=== PATIENT | male | born 1960 | race Caucasian/White ===

== ENCOUNTER 2018-01-01 01:15 | Emergency (ER) | payer MEDICAID ==
[2018-01-01 01:28] VITALS: BMI 31.5
[2018-01-01 01:32] VITALS: RESP 18
--- NOTE | 2018-01-01 02:03 | ED PDOC ---
Arrival/HPI - General Chief Complaint: Male Genitourinary Time Seen by Provider: 01/01/18 01:24 Historian: Patient - History of Present Illness Narrative History of Present Illness (Text): 01/01/18 01:35 57 year old male, with past medical history of recurrent kidney stones, presents to the Emergency department complaining of non-radiating left sided flank discomfort since couple hours. Patient states progressively worsening symptoms with ambulation prompting him to present to the Emergency department for medical evaluation. Patient denies any fever, chills, nausea, vomiting, diarrhea, dysuria, urinary output changes, hematuria, changes in bowel movement , abdominal pain, chest pain, shortness of breath or any other complaints. Time/Duration: 1-3 hours Symptom Onset: Gradual Symptom Course: Unchanged Quality: Aching Activities at Onset: Light Context: Home Past Medical History - Provider Review Nursing Documentation Reviewed: Yes - Infectious Disease Hx of Infectious Diseases: None - Tetanus Immunization Tetanus Immunization: Unknown - Cardiac Hx Cardiac Disorders: No - Pulmonary Hx Respiratory Disorders: No - Neurological Hx Neurological Disorder: No - HEENT Hx HEENT Disorder: No - Renal Hx Renal Disorder: Yes Hx Kidney Stones: Yes - Endocrine/Metabolic Hx Endocrine Disorders: No - Hematological/Oncological Hx Blood Transfusions: No Hx Blood Transfusion Reaction: No - Integumentary Hx Dermatological Disorder: No - Musculoskeletal/Rheumatological Hx Falls: No - Gastrointestinal Hx 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") - Genitourinary/Gynecological Hx Genitourinary Disorders: No Other/Comment: KIDNEY STONE - Psychiatric Hx Psychophysiologic Disorder: No Hx Substance Use: No - Surgical History Hx Cardiac Catheterization: No Hx Coronary Stent: No - Anesthesia Hx Anesthesia Reactions: No Hx Malignant Hyperthermia: No Family/Social History - Physician Review Nursing Documentation Reviewed: Yes Family/Social History: No Known Family HX Smoking Status: Current Some Days Smoker Hx Alcohol Use: No Hx Substance Use: No Allergies/Home Meds Allergies/Adverse Reactions: Allergies No Known Allergies Allergy (Verified 01/01/18 04:24) Review of Systems - Physician Review All systems were reviewed & negative as marked: Yes - Review of Systems Constitutional: Normal. absent: Fevers Eyes: Normal ENT: Normal Respiratory: Normal. absent: SOB Cardiovascular: Normal. absent: Chest Pain Gastrointestinal: Normal. absent: Abdominal Pain, Stool Changes, Diarrhea, Nausea, Vomiting Genitourinary Male: Normal. absent: Dysuria, Hematuria, Urinary Output Changes Musculoskeletal: Back Pain (left flank discomfort ) Skin: Normal Neurological: Normal Endocrine: Normal Hemo/Lymphatic: Normal Psychiatric: Normal Physical Exam Vital Signs Reviewed: Yes Vital Signs Temp Pulse Resp BP Pulse Ox 01/01/18 06:16 97.5 F L 67 18 151/69 H 98 01/01/18 03:07 71 18 159/72 H 98 01/01/18 01:28 97.7 F 68 18 162/76 H 99 Temperature: Afebrile Blood Pressure: Hypertensive Pulse: Regular Respiratory Rate: Normal Appearance: Positive for: Well-Appearing, Non-Toxic, Comfortable Pain Distress: None Mental Status: Positive for: Alert and Oriented X 3 - Systems Exam Head: Present: Atraumatic, Normocephalic Pupils: Present: PERRL Extroacular Muscles: Present: EOMI Conjunctiva: Present: Normal Mouth: Present: Moist Mucous Membranes Neck: Present: Normal Range of Motion Respiratory/Chest: Present: Clear to Auscultation, Good Air Exchange. No: Respiratory Distress, Accessory Muscle Use Cardiovascular: Present: Regular Rate and Rhythm, Normal S1, S2. No: Murmurs Abdomen: No: Tenderness, Distention, Peritoneal Signs Back: Present: CVA Tenderness (Left sided). No: Midline Tenderness Upper Extremity: Present: Normal Inspection. No: Cyanosis, Edema Lower Extremity: Present: Normal Inspection. No: Edema Neurological: Present: GCS=15, CN II-XII Intact, Speech Normal Skin: Present: Warm, Dry, Normal Color. No: Rashes Psychiatric: Present: Alert, Oriented x 3, Normal Insight, Normal Concentration Medical Decision Making ED Course and Treatment: 01/01/18 01:35 Impression: 57 year old male presents to the Emergency department for left flank pain. Differential Diagnosis included but are not limited to: Nephrolithiasis Plan: -- CT of Abdomen/Pelvis -- Labs -- Toradol -- Urinalysis -- Reassess and disposition Prior Visits: Notes and results from previous visits were reviewed. Progress Notes: - Lab Interpretations Lab Results: 01/01/18 02:15 01/01/18 02:15 Lab Results 01/01/18 04:10: Urine Color Yellow, Urine Appearance Sl cloudy, Urine pH 6.0, Ur Specific [place] >= 1.030, Urine Protein Trace H, Urine Glucose (UA) Negative , Urine Ketones Trace H, Urine Blood Small H, Urine Nitrate Negative, Urine Bilirubin Negative, Urine Urobilinogen 0.2, Ur Leukocyte Esterase Negative, Urine RBC 2 - 5, Urine WBC 0 - 2, Ur Epithelial Cells 1 - 3, Urine Bacteria Rare 01/01/18 02:15: Sodium 140, Potassium 4.1, Chloride 103, Carbon Dioxide 27, Anion Gap 15, BUN 11, Creatinine 0.7 L, Est GFR ( Amer) > 60, Est GFR ( Non-Af Amer) > 60, Random Glucose 240 H, Calcium 9.1, Total Bilirubin 0.5, AST 25, ALT 29, Alkaline Phosphatase 80, Total Protein 7.0, Albumin 3.8, Globulin 3.2, Albumin/Globulin Ratio 1.2 01/01/18 02:15: WBC 8.3 D, RBC 4.89, Hgb 14.0, Hct 41.2 L, MCV 84.3, MCH 28.6, MCHC 34.0, RDW 14.5, Plt Count 259, MPV 10.6, Gran % 53.7, Lymph % (Auto) 32.5, Towns % (Auto) 8.2 H, Eos % (Auto) 5.2 H, Baso % (Auto) 0.4, Gran # 4.45, Lymph # (Auto) 2.7, Towns # (Auto) 0.7 H, Eos # (Auto) 0.4, Baso # (Auto) 0.03 - RAD Interpretation Radiology Orders: 01/01/18 01:35 ABD & PELVIS W/O PO OR IV CONT [CT] Stat - Medication Orders Current Medication Orders: Discontinued Medications Ketorolac Tromethamine (Toradol) 30 mg IVP ONCE ONE Stop: 01/01/18 01:44 Last Admin: 01/01/18 02:06 Dose: 30 mg BANNER Pain Assessment Document 01/01/18 02:06 RADHA (Rec: 01/01/18 02:08 RADHA [email or web address]) Pain Reassessment Is this a pain reassessment? Yes IVP Administration Document 01/01/18 02:06 RADHA (Rec: 01/01/18 02:08 RADHA [email or web address]) Charges for Administration # of IVP Administrations 1 Re-Assess: BANNER Pain Assessment Document 01/01/18 03:06 RADHA (Rec: 01/01/18 04:37 RADHA [id number]) Pain Reassessment Is this a pain reassessment? Yes Sleep Is patient sleeping during reassessment? No Presence of Pain Presence of Pain No - Scribe Statement The provider has reviewed the documentation as recorded by the Scribe Clarice Mnodragon. All medical record entries made by the Scribe were at my direction and personally dictated by me. I have reviewed the chart and agree that the record accurately reflects my personal performance of the history, physical exam, medical decision making, and the department course for this patient. I have also personally directed, reviewed, and agree with the discharge instructions and disposition. Disposition/Present on Arrival - Present on Arrival Any Indicators Present on Arrival: No History of DVT/PE: No History of Uncontrolled Diabetes: No Urinary Catheter: No History of Decub. Ulcer: No History Surgical Site Infection Following: None - Disposition Have Diagnosis and Disposition been Completed?: Yes Diagnosis: Nephrolithiasis Disposition: HOME/ ROUTINE Disposition Time: 06:30 Condition: GOOD Discharge Instructions (ExitCare): Kidney Stones in Adults Prescriptions: Ciprofloxacin HCl [Cipro] 250 mg PO BID #14 tab Tamsulosin [Flomax] 0.4 mg PO DAILY #10 cap oxyCODONE/Acetaminophen [Percocet 5/325 mg Tab] 1 ea PO QID #10 tab Referrals: Jaime Harkins MD [Staff Provider] - Follow up with primary Carlota Neff [Primary Care Provider] - Follow up with primary Forms: [employer] (Libyan)
[2018-01-01 02:30] LABS: BASO # 0.03 K/mm3 (0.0-2.0); BASO % 0.4 % (0.0-3.0); EOS # 0.4 (0.0-0.7); EOS % 5.2 % (1.5-5.0); GRAN # 4.45 (1.4-6.5); GRAN % 53.7 % (50.0-68.0); LYMPH # 2.7 (1.2-3.4); LYMPH % 32.5 % (22.0-35.0); MEAN CELL VOLUME 84.3 fl (80.0-105.0); MEAN CORPUSCULAR HEMOGLOBIN 28.6 pg (25.0-35.0); MEAN PLATELET VOLUME 10.6 fl (7.0-11.0); MONO # 0.7 (0.1-0.6); MONO % 8.2 % (1.0-6.0); RBC 4.89 10^6/uL (3.5-6.1); RED CELL DISTRIBUTION WIDTH 14.5 % (11.5-14.5); WHITE BLOOD COUNT 8.3 10^3/ul (4.5-11.0)
[2018-01-01 02:37] LABS: ALB/GLOB RATIO 1.2 (1.1-1.8); ALBUMIN 3.8 g/dL (3.0-4.8); ALT/SGPT 29 U/L (7-56); AST/SGOT 25 U/L (17-59); BLOOD UREA NITROGEN 11 mg/dL (7-21); CALCIUM 9.1 mg/dL (8.4-10.5); GFR AFRICAN-AMERICAN > 60; GFR NON-AFRICAN AMERICAN > 60
[2018-01-01 04:21] LABS: URINE BILIRUBIN NEGATIVE (NEGATIVE); URINE BLOOD SMALL (NEGATIVE); URINE GLUCOSE (UA) NEGATIVE (NEGATIVE); URINE LEUKOCYTE ESTERASE NEGATIVE Leu/uL (NEGATIVE); URINE PROTEIN TRACE mg/dL (<30 mg/dL); URINE UROBILINOGEN 0.2 E.U./dL (<1 E.U./dL)
[2018-01-01 04:28] LABS: URINE APPEARANCE SL CLOUDY (CLEAR); URINE COLOR YELLOW (YELLOW)
[2018-01-01 04:40] LABS: URINE WBC 0 - 2 /hpf (0-6)
[2018-01-01 04:41] LABS: URINE BACTERIA RARE (NEG)
[2018-01-01 06:29] VITALS: BP 151/69; PULSE 67; O2SAT 98
[2018-01-01 06:30] VITALS: TEMP 97.5
--- NOTE | 2018-01-01 11:17 | CT ---
PROCEDURE: CT Abdomen and Pelvis without intravenous contrast HISTORY: left flank pain COMPARISON: 05/31/2016, 08/12/[address] scans abdomen and pelvis TECHNIQUE: Unenhanced study. Neither oral nor intravenous contrast administered. Radiation dose: Total exam DLP = mGy-cm. This CT exam was performed using one or more of the following dose reduction techniques: Automated exposure control, adjustment of the mA and/or kV according to patient size, and/or use of iterative reconstruction technique. FINDINGS: LOWER THORAX: Unremarkable. LIVER: Unremarkable. No gross lesion or ductal dilatation. GALLBLADDER AND BILE DUCTS: Cholelithiasis without CT evidence of acute cholecystitis. PANCREAS: Unremarkable. No gross lesion or ductal dilatation. SPLEEN: Unremarkable. ADRENALS: Unremarkable. No mass. KIDNEYS AND URETERS: Obstructing proximal left ureteral calculus 6.3 x 8 mm. Mild hydronephrosis identified. Stable midpole calculus 6.6 x 8.3 mm. Right kidney in ureter: Tiny nonobstructing calculi. Right hydronephrosis and hydroureter identified previously no longer apparent. VASCULATURE: Unremarkable. No aortic aneurysm. BOWEL: Unremarkable. No obstruction. No gross mural thickening. APPENDIX: Unremarkable. Normal appendix. PERITONEUM: Unremarkable. No free fluid. No free air. LYMPH NODES: Unremarkable. No enlarged lymph nodes. BLADDER: Unremarkable.Less than 2 mm calculus urinary bladder near the right ureterovesical junction. REPRODUCTIVE: Unremarkable. BONES: No acute fracture. OTHER FINDINGS: None. IMPRESSION: Obstructing calculus proximal left ureter. Nonobstructing calculi both upper tracts. 2 mm calculus in the urinary bladder. The bladder is otherwise unremarkable. Cholelithiasis without CT evidence of acute cholecystitis. A stable finding. Concordant results (preliminary interpretation) provided by [employer]. Procedure Completed: 03:35 Preliminary ([facility]) Report: Dictated and Authenticated: 06:06 Final Interpretation: 11:15 January 01, 2018.
== END 2018-01-01 06:34 | disposition home or self-care (01) ==
LOC: ED 01:15
DX: N20.0 Calculus of kidney (principal)
CPT/HCPCS: 74176; 80053; 81001; 85025; 96374; 99284; J1885

== ENCOUNTER 2018-01-13 02:35 | Emergency (ER) | payer MEDICAID ==
[2018-01-13 02:35] VITALS: BMI 31.5
--- NOTE | 2018-01-13 03:23 | ED PDOC ---
Arrival/HPI - General Chief Complaint: Abdominal Pain Time Seen by Provider: 01/13/18 03:17 Historian: Patient - History of Present Illness Narrative History of Present Illness (Text): 01/13/18 03:22 Evert Villarreal is a 57 year old male, whose past medical history includes recurrent kidney stones, who presents to the Emergency department complaining of worsening left-sided flank and and left-sided abdominal pain since 00:00. Patient was recently seen in the Emergency department for similar complaints on 12/31/17, diagnosed with a 6mm kidney stone, and discharged home with Flomax, Cipro, and Percocet, which he has been taking as directed. Patient states he followed up with urology and referred to a urologist in [place]. Patient denies any fever, chills, chest pain, shortness of breath, nausea, vomiting, diarrhea, neck pain, headache, dizziness, or any other complaints. Symptom Onset: Gradual Symptom Course: Unchanged Activities at Onset: Light Context: Home Past Medical History - Provider Review Nursing Documentation Reviewed: Yes - Infectious Disease Hx of Infectious Diseases: None - Tetanus Immunization Tetanus Immunization: Unknown - Cardiac Hx Cardiac Disorders: No - Pulmonary Hx Respiratory Disorders: No - Neurological Hx Neurological Disorder: No - HEENT Hx HEENT Disorder: No - Renal Hx Renal Disorder: Yes Hx Kidney Stones: Yes - Endocrine/Metabolic Hx Endocrine Disorders: No - Hematological/Oncological Hx Blood Transfusions: No Hx Blood Transfusion Reaction: No - Integumentary Hx Dermatological Disorder: No - Musculoskeletal/Rheumatological Hx Falls: No - Gastrointestinal Hx 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") - Genitourinary/Gynecological Hx Genitourinary Disorders: No Other/Comment: KIDNEY STONE - Psychiatric Hx Psychophysiologic Disorder: No Hx Substance Use: No - Surgical History Hx Cardiac Catheterization: No Hx Coronary Stent: No - Anesthesia Hx Anesthesia Reactions: No Hx Malignant Hyperthermia: No Family/Social History - Physician Review Nursing Documentation Reviewed: Yes Family/Social History: Unknown Family HX Smoking Status: Current Some Days Smoker Hx Alcohol Use: No Hx Substance Use: No Allergies/Home Meds Allergies/Adverse Reactions: Allergies No Known Allergies Allergy (Verified 01/13/18 03:02) Review of Systems - Physician Review All systems were reviewed & negative as marked: Yes - Review of Systems Constitutional: Normal. absent: Fevers Eyes: Normal ENT: Normal Respiratory: Normal. absent: SOB, Cough Cardiovascular: Normal. absent: Chest Pain Gastrointestinal: Abdominal Pain. absent: Diarrhea, Vomiting Genitourinary Male: Normal. absent: Dysuria, Frequency, Hematuria, Urinary Output Changes Musculoskeletal: Back Pain. absent: Neck Pain Skin: Normal. absent: Rash Neurological: Normal. absent: Headache, Dizziness Endocrine: Normal Hemo/Lymphatic: Normal Psychiatric: Normal Physical Exam Vital Signs Reviewed: Yes Vital Signs Temp Pulse Resp BP Pulse Ox 01/13/18 03:02 97.5 F L 66 18 160/99 H 95 Temperature: Afebrile Blood Pressure: Hypertensive Pulse: Regular Respiratory Rate: Normal Appearance: Positive for: Well-Appearing, Non-Toxic, Comfortable Pain Distress: None Mental Status: Positive for: Alert and Oriented X 3 - Systems Exam Head: Present: Atraumatic, Normocephalic Pupils: Present: PERRL Extroacular Muscles: Present: EOMI Conjunctiva: Present: Normal Mouth: Present: Moist Mucous Membranes Neck: Present: Normal Range of Motion Respiratory/Chest: Present: Clear to Auscultation, Good Air Exchange. No: Respiratory Distress, Accessory Muscle Use Cardiovascular: Present: Regular Rate and Rhythm, Normal S1, S2. No: Murmurs Abdomen: No: Tenderness, Distention, Peritoneal Signs Back: Present: CVA Tenderness (Left CVA tenderness). No: Midline Tenderness, Paraspinal Tenderness Upper Extremity: Present: Normal Inspection. No: Cyanosis, Edema Lower Extremity: Present: Normal Inspection. No: Edema Neurological: Present: GCS=15, CN II-XII Intact, Speech Normal Skin: Present: Warm, Dry, Normal Color. No: Rashes Psychiatric: Present: Alert, Oriented x 3, Normal Insight, Normal Concentration Medical Decision Making ED Course and Treatment: 01/13/18 03:23 Impression: 57 year old male complaining of left-sided flank/abdominal pain. Differential Diagnosis included but are not limited to: nephrolithiasis Plan: -- Labs -- IV fluids -- Toradol -- Reassess and disposition Prior Visits: Notes and results from previous visits were reviewed. On 01/01/18, pt was seen in the Emergency department for left-sided flank pain. Pt was d/c home with Flomax, Cipro, and Percocet. Progress Notes: 01/13/18 05:17 On re-evaluation, patient feels better and is in no acute distress. Patient in agreement with plan to be discharged home. Patient is stable for discharge. Patient scheduled to f/u with his urologist for outpt lithotripsy, states he has medication previously prescribed to him. Patient was instructed to follow up with physician or return if symptoms worsen or new concerning symptoms arise. - Lab Interpretations Lab Results: 01/13/18 03:35 01/13/18 03:35 Lab Results 01/13/18 04:21: Urine Color Yellow, Urine Appearance Clear, Urine pH 6.0, Ur Specific [place] 1.020, Urine Protein Trace H, Urine Glucose (UA) Negative, Urine Ketones Negative, Urine Blood Large H, Urine Nitrate Negative, Urine Bilirubin Negative, Urine Urobilinogen 0.2, Ur Leukocyte Esterase Negative, Urine RBC 5 - 10, Urine WBC 0 - 2, Ur Epithelial Cells 0 - 2 01/13/18 03:35: WBC 8.4, RBC 5.00, Hgb 14.1, Hct 42.1, MCV 84.2, MCH 28.2, MCHC 33.5, RDW 14.6 H, Plt Count 299, MPV 10.6 01/13/18 03:35: Sodium 143, Potassium 4.2, Chloride 103, Carbon Dioxide 28, Anion Gap 17, BUN 14, Creatinine 0.7 L, Est GFR ( Amer) > 60, Est GFR ( Non-Af Amer) > 60, Random Glucose 224 H, Calcium 10.0, Total Bilirubin 0.7, AST 27, ALT 40, Alkaline Phosphatase 82, Total Protein 7.5, Albumin 4.2, Globulin 3.3, Albumin/Globulin Ratio 1.3 - Medication Orders Current Medication Orders: Sodium Chloride (Sodium Chloride 0.9%) 1,000 mls @ 100 mls/hr IV .Q10H [facility] Last Admin: 01/13/18 03:40 Dose: 100 mls/hr eMAR Start Stop Document 01/13/18 03:40 IT (Rec: 01/13/18 03:40 IT [id number]) Intravenous Solution Start Date 01/13/18 Start Time 03:40 Discontinued Medications Ketorolac Tromethamine (Toradol) 30 mg IVP ONCE ONE Stop: 01/13/18 03:28 Last Admin: 01/13/18 03:40 Dose: 30 mg MAR Pain Assessment Document 01/13/18 03:40 IT (Rec: 01/13/18 03:40 IT [id number]) Pain Reassessment Is this a pain reassessment? No Presence of Pain Presence of Pain Yes Pain Scale Used Pain Scale Used Numeric IVP Administration Document 01/13/18 03:40 IT (Rec: 01/13/18 03:40 IT [id number]) Charges for Administration # of IVP Administrations 1 - Scribe Statement The provider has reviewed the documentation as recorded by the Grover Dorsey Provider Scribe Attestation: All medical record entries made by the Scribe were at my direction and personally dictated by me. I have reviewed the chart and agree that the record accurately reflects my personal performance of the history, physical exam, medical decision making, and the department course for this patient. I have also personally directed, reviewed, and agree with the discharge instructions and disposition. Disposition/Present on Arrival - Present on Arrival Any Indicators Present on Arrival: No History of DVT/PE: No History of Uncontrolled Diabetes: No Urinary Catheter: No History of Decub. Ulcer: No History Surgical Site Infection Following: None - Disposition Have Diagnosis and Disposition been Completed?: Yes Diagnosis: Nephrolithiasis Disposition: HOME/ ROUTINE Disposition Time: 05:19 Patient Plan: Discharge Condition: GOOD Additional Instructions: Follow up with your urologist as scheduled/continue meds as previously prescribed/any recurrent persistent symptoms return to the emergency room Forms: [employer] (Scottish)
[2018-01-13] MEDS ORDERED: Sodium Chloride 0.9% 1,000 ML IV SCH (03:30)
[2018-01-13 04:06] LABS: ALB/GLOB RATIO 1.3 (1.1-1.8); ALBUMIN 4.2 g/dL (3.0-4.8); ALT/SGPT 40 U/L (7-56); AST/SGOT 27 U/L (17-59); BLOOD UREA NITROGEN 14 mg/dL (7-21); GFR AFRICAN-AMERICAN > 60; GFR NON-AFRICAN AMERICAN > 60
[2018-01-13 04:27] LABS: HEMOGLOBIN 14.1 g/dL (14.0-18.0); MEAN CELL VOLUME 84.2 fl (80.0-105.0); MEAN CORPUSCULAR HEMOGLOBIN 28.2 pg (25.0-35.0); MEAN CORPUSCULAR HGB CONC 33.5 g/dl (31.0-37.0); MEAN PLATELET VOLUME 10.6 fl (7.0-11.0); RED CELL DISTRIBUTION WIDTH 14.6 % (11.5-14.5); WHITE BLOOD COUNT 8.4 10^3/ul (4.5-11.0)
[2018-01-13 04:31] LABS: URINE BILIRUBIN NEGATIVE (NEGATIVE); URINE BLOOD LARGE (NEGATIVE); URINE GLUCOSE (UA) NEGATIVE (NEGATIVE); URINE LEUKOCYTE ESTERASE NEGATIVE Leu/uL (NEGATIVE); URINE PROTEIN TRACE mg/dL (<30 mg/dL); URINE UROBILINOGEN 0.2 E.U./dL (<1 E.U./dL)
[2018-01-13 04:36] LABS: URINE APPEARANCE CLEAR (CLEAR); URINE COLOR YELLOW (YELLOW)
[2018-01-13 04:51] LABS: URINE EPITHELIAL CELLS 0 - 2 /hpf (0-5); URINE WBC 0 - 2 /hpf (0-6)
[2018-01-13 05:26] VITALS: TEMP 97.9
[2018-01-13 05:27] VITALS: BP 146/80; PULSE 67; RESP 17; O2SAT 98
== END 2018-01-13 05:27 | disposition home or self-care (01) ==
LOC: ED 02:35
DX: N20.0 Calculus of kidney (principal)
CPT/HCPCS: 80053; 81001; 85027; 96374; 99283; J1885; J7030

== ENCOUNTER 2018-01-28 00:05 | Observation (INO) | payer MEDICAID ==
[2018-01-28 00:42] VITALS: BMI 30.9
[2018-01-28] MEDS ORDERED: Sodium Chloride 0.9% 1,000 ML IV STA (00:59)
[2018-01-28] MEDS ORDERED: Morphine 4 mg/ml ISec IVP STA (00:59)
[2018-01-28 01:39] LABS: HEMOGLOBIN 13.5 g/dL (14.0-18.0); MEAN CELL VOLUME 84.1 fl (80.0-105.0); MEAN CORPUSCULAR HEMOGLOBIN 28.3 pg (25.0-35.0); MEAN CORPUSCULAR HGB CONC 33.7 g/dl (31.0-37.0); MEAN PLATELET VOLUME 10.7 fl (7.0-11.0); RBC 4.77 10^6/uL (3.5-6.1); WHITE BLOOD COUNT 9.9 10^3/ul (4.5-11.0)
[2018-01-28 01:48] LABS: ALB/GLOB RATIO 1.2 (1.1-1.8); ALT/SGPT 28 U/L (7-56); AST/SGOT 21 U/L (17-59); BLOOD UREA NITROGEN 10 mg/dL (7-21); CALCIUM 9.3 mg/dL (8.4-10.5); GFR AFRICAN-AMERICAN > 60; GFR NON-AFRICAN AMERICAN > 60
[2018-01-28 02:10] LABS: URINE BILIRUBIN NEGATIVE (NEGATIVE); URINE BLOOD LARGE (NEGATIVE); URINE GLUCOSE (UA) NEGATIVE (NEGATIVE); URINE LEUKOCYTE ESTERASE SMALL Leu/uL (NEGATIVE); URINE PROTEIN 100 mg/dL (<30 mg/dL); URINE UROBILINOGEN 0.2 E.U./dL (<1 E.U./dL)
--- NOTE | 2018-01-28 02:10 | ED PDOC ---
Arrival/HPI - General Chief Complaint: Back Pain Time Seen by Provider: 01/28/18 00:39 Historian: Patient - History of Present Illness Narrative History of Present Illness (Text): 01/28/18 00:45 57 year old male, hypertension, whose past medical history includes Hypercholesterolemia, Hyperlipidemia, Kidney Stones, Chronic Kidney Disease, and appendectomy presents to the Emergency department complaining of left flank pain that radiates to the left abdomen which occurred this morning. Patient states he had a recent stent removal by Dr. Harkins a couple hours prior. Patient denies any fevers, chills, chest pain, shortness of breath, nausea, vomiting, diarrhea, neck pain, urinary symptoms, headache, dizziness, or any other complaint. Time/Duration: Other (this morning) Symptom Onset: Sudden Symptom Course: Unchanged Activities at Onset: Light Context: Home Past Medical History - Provider Review Nursing Documentation Reviewed: Yes - Infectious Disease Hx of Infectious Diseases: None - Tetanus Immunization Tetanus Immunization: Unknown - Cardiac Hx Hypertension: Yes - Pulmonary Hx Asthma: No Hx Bronchitis: No Hx Chronic Obstructive Pulmonary Disease (COPD): No Hx Emphysema: No Hx Pneumonia: No Hx Sleep Apnea: No - Neurological Hx Neurological Disorder: No - HEENT Hx HEENT Disorder: No - Renal Hx Renal Disorder: Yes Hx Kidney Stones: Yes - Endocrine/Metabolic Hx Endocrine Disorders: No - Hematological/Oncological Hx Blood Transfusions: No Hx Blood Transfusion Reaction: No - Integumentary Hx Dermatological Disorder: No - Musculoskeletal/Rheumatological Hx Falls: No - Gastrointestinal Hx 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") - Genitourinary/Gynecological Hx Genitourinary Disorders: No Other/Comment: KIDNEY STONE - Psychiatric Hx Psychophysiologic Disorder: No Hx Substance Use: No - Surgical History Hx Appendectomy: Yes ([facility] 05/31/16) - Anesthesia Hx Anesthesia: Yes Hx Anesthesia Reactions: No Hx Malignant Hyperthermia: No Family/Social History - Physician Review Nursing Documentation Reviewed: Yes Family/Social History: No Known Family HX Smoking Status: Light Smoker < 10 Cigarettes Daily Hx Alcohol Use: No Hx Substance Use: No Allergies/Home Meds Allergies/Adverse Reactions: Allergies No Known Allergies Allergy (Verified 01/28/18 00:42) Home Medications: Home Meds Medication Instructions Recorded Confirmed Metoprolol Succinate 25 mg PO DAILY 01/14/18 01/23/18 Review of Systems - Physician Review All systems were reviewed & negative as marked: Yes - Review of Systems Constitutional: absent: Fevers, Other (Chills) Respiratory: absent: SOB Cardiovascular: absent: Chest Pain Gastrointestinal: Abdominal Pain. absent: Diarrhea, Nausea, Vomiting Genitourinary Male: absent: Dysuria, Frequency, Hematuria Musculoskeletal: Other (left flank pain). absent: Neck Pain Neurological: absent: Headache, Dizziness Physical Exam Vital Signs Reviewed: Yes Vital Signs Temp Pulse Resp BP Pulse Ox 01/28/18 00:46 97.4 F L 01/28/18 00:42 82 18 150/91 H 99 Temperature: Afebrile Blood Pressure: Hypertensive Pulse: Regular Respiratory Rate: Normal Appearance: Positive for: Well-Appearing, Non-Toxic, Comfortable Pain Distress: None Mental Status: Positive for: Alert and Oriented X 3 - Systems Exam Head: Present: Atraumatic, Normocephalic Pupils: Present: PERRL Extroacular Muscles: Present: EOMI Conjunctiva: Present: Normal Mouth: Present: Moist Mucous Membranes Neck: Present: Normal Range of Motion Respiratory/Chest: Present: Clear to Auscultation, Good Air Exchange. No: Respiratory Distress, Accessory Muscle Use Cardiovascular: Present: Regular Rate and Rhythm, Normal S1, S2. No: Murmurs Abdomen: No: Tenderness, Distention, Peritoneal Signs Back: Present: CVA Tenderness (Mild left CVA tenderness) Upper Extremity: Present: Normal Inspection. No: Cyanosis, Edema Lower Extremity: Present: Normal Inspection. No: Edema Neurological: Present: GCS=15, CN II-XII Intact, Speech Normal Skin: Present: Warm, Dry, Normal Color. No: Rashes Psychiatric: Present: Alert, Oriented x 3, Normal Insight, Normal Concentration Medical Decision Making ED Course and Treatment: 01/28/18 00:045 Impression: 57 year old male presents complaining of left flank pain that radiates to the left abdomen which occurred this morning. Patient had a recent stent removal by Dr. Harkins couple hours prior. Plan: -- Abd & pelvis w/o Contrast -- Labs -- Morphine, IV Fluids, Zofran Inj -- Urinalysis -- Reassess and disposition Prior Visits: Notes and results from previous visits were reviewed. 01/13/18 presents complaining of worsening left-sided flank and abdominal pain. Patient was discharged. Progress Notes: EXAM: CT Abdomen and Pelvis Without Intravenous Contrast Dictated and Authenticated by: Ludivina Rodriguez MD 01/28/2018 2:29 AM FINDINGS: Lung bases: Unremarkable. No mass. No consolidation. ABDOMEN: Liver: Unremarkable. Gallbladder and bile ducts: The gallbladder is contracted with multiple gallstones. No ductal dilation. Pancreas: Unremarkable. No ductal dilation. Spleen: Unremarkable. No splenomegaly. Adrenals: Unremarkable. No mass. Kidneys and ureters: Again demonstrated is moderate left hydronephrosis and hydroureter there is a 4 x 5 x 7 mm stone in the proximal ureter. There is new left hydroureter involving the entire length of the ureter with adjacent inflammatory stranding. Left perinephric inflammatory stranding, new compared to the prior study.There is a left renal collecting system calcification. 1 mm nonobstructing right renal stone. Stomach and bowel: Unremarkable. No obstruction. No mucosal thickening. There is no wall thickening or pericolonic stranding to suggest colitis. PELVIS: Appendix: There has been an appendectomy. Bladder: 3 mm stone in the right bladder base, unchanged. Reproductive: Unremarkable as visualized. ABDOMEN and PELVIS: Intraperitoneal space: Unremarkable. No free air. No significant fluid collection. Bones/joints: No acute fracture. No dislocation. Soft tissues: Unremarkable. Vasculature: The vasculature demonstrates diffuse mild atherosclerotic calcification. No abdominal aortic aneurysm. Lymph nodes: Unremarkable. No enlarged lymph nodes. IMPRESSION: Again demonstrated is moderate left hydroureteronephrosis secondary to a stone in the proximal aorta. New left perinephric and periureteral inflammatory stranding. New diffuse left hydroureter. Stable bladder stone 01/28/18 03:[address] Harkins who is aware and agrees with the plan. Accepts patient into his service. - Lab Interpretations Lab Results: 01/28/18 01:14 01/28/18 01:14 Lab Results 01/28/18 01:52: Urine Color Yellow, Urine Appearance Sl cloudy, Urine pH 6.0, Ur Specific Guild 1.010, Urine Protein 100 H, Urine Glucose (UA) Negative, Urine Ketones Negative, Urine Blood Large H, Urine Nitrate Negative, Urine Bilirubin Negative, Urine Urobilinogen 0.2, Ur Leukocyte Esterase Small H, Urine RBC 10 - 15, Urine WBC 1 - 3, Ur Epithelial Cells 0 - 2, Calcium Oxalate Crystal Few, Amorphous Sediment Moderate, Urine Bacteria Few 01/28/18 01:14: WBC 9.9, RBC 4.77, Hgb 13.5 L, Hct 40.1 L, MCV 84.1, MCH 28.3, MCHC 33.7, RDW 14.0, Plt Count 354, MPV 10.7 01/28/18 01:14: Sodium 139, Potassium 4.1, Chloride 101, Carbon Dioxide 26, Anion Gap 16, BUN 10, Creatinine 0.7 L, Est GFR ( Amer) > 60, Est GFR ( Non-Af Amer) > 60, Random Glucose 200 H, Calcium 9.3, Total Bilirubin 0.2, AST 21, ALT 28, Alkaline Phosphatase 100, Total Protein 7.3, Albumin 4.0, Globulin 3.3, Albumin/Globulin Ratio 1.2 I have reviewed the lab results: Yes - RAD Interpretation Radiology Orders: 01/28/18 00:59 ABD & PELVIS W/O PO OR IV CONT [CT] Stat - Medication Orders Current Medication Orders: Ceftriaxone Sodium (Rocephin 1 Gram Ivpb) 1 gm in 100 mls @ 200 mls/hr IV ONCE STA PRN Reason: Protocol Stop: 01/28/18 04:16 Sodium Chloride (Sodium Chloride 0.9%) 1,000 mls @ 100 mls/hr IV .Q10H KANDI Discontinued Medications Sodium Chloride (Sodium Chloride 0.9%) 1,000 mls @ 999 mls/hr IV .Q1H1M STA Stop: 01/28/18 01:59 Last Admin: 01/28/18 01:22 Dose: 999 mls/hr eMAR Start Stop Document 01/28/18 01:22 SS (Rec: 01/28/18 01:22 [id number] Intravenous Solution Start Date 01/28/18 Start Time 01:22 End Date 01/28/18 End time 02:22 Total Infusion Time 60 Morphine Sulfate (Morphine) 4 mg IVP STAT STA Stop: 01/28/18 01:00 Last Admin: 01/28/18 01:15 Dose: 4 mg MAR Pain Assessment Document 01/28/18 01:15 SS (Rec: 01/28/18 01:22 SS [id number] Pain Reassessment Is this a pain reassessment? No Sleep Is patient sleeping during reassessment? No Presence of Pain Presence of Pain Yes Pain Scale Used Pain Scale Used Numeric Location Pain Location Body Site Back Description Description Sharp Intensity of Pain at present 9 Pain Behavior Moaning Restlessness IVP Administration Document 01/28/18 01:15 SS (Rec: 01/28/18 01:22 SS [id number] Charges for Administration # of IVP Administrations 1 Ondansetron HCl (Zofran Inj) 4 mg IVP ONCE ONE Stop: 01/28/18 01:00 Last Admin: 01/28/18 01:22 Dose: 4 mg IVP Administration Document 01/28/18 01:22 SS (Rec: 01/28/18 01:22 SS [id number] Charges for Administration # of IVP Administrations 1 - Scribe Statement The provider has reviewed the documentation as recorded by the Grover Robertson Provider Scribe Attestation: All medical record entries made by the Scribe were at my direction and personally dictated by me. I have reviewed the chart and agree that the record accurately reflects my personal performance of the history, physical exam, medical decision making, and the department course for this patient. I have also personally directed, reviewed, and agree with the discharge instructions and disposition. Disposition/Present on Arrival - Present on Arrival Any Indicators Present on Arrival: No History of DVT/PE: No History of Uncontrolled Diabetes: No Urinary Catheter: No History of Decub. Ulcer: No History Surgical Site Infection Following: None - Disposition Have Diagnosis and Disposition been Completed?: Yes Diagnosis: Obstructive uropathy, Renal colic on left side, Nephrolithiasis Disposition: HOSPITALIZED Disposition Time: 03:51 Patient Plan: Observation Condition: STABLE Forms: [employer] (Bengali)
[2018-01-28 02:11] LABS: URINE COLOR YELLOW (YELLOW)
[2018-01-28 02:12] LABS: URINE APPEARANCE SL CLOUDY (CLEAR)
[2018-01-28 02:36] LABS: URINE AMORPHOUS SEDIMENT MODERATE; URINE BACTERIA FEW (NEG); URINE CALCIUM OXALATE CRYSTALS FEW /hpf; URINE EPITHELIAL CELLS 0 - 2 /hpf (0-5)
[2018-01-28] MEDS ORDERED: cefTRIAXone 1 gm 1 GM/100 ML BAG IV STA (03:47)
[2018-01-28] MEDS ORDERED: Sodium Chloride 0.9% 1,000 ML IV SCH (04:00)
--- NOTE | 2018-01-28 08:58 | CT ---
Date of service: 01/28/2018 PROCEDURE: CT Abdomen and Pelvis without intravenous contrast HISTORY: flank pain COMPARISON: 01/01/2018 TECHNIQUE: Technique. Contrast dose: Radiation dose: Total exam DLP = mGy-cm. This CT exam was performed using one or more of the following dose reduction techniques: Automated exposure control, adjustment of the mA and/or kV according to patient size, and/or use of iterative reconstruction technique. FINDINGS: LOWER THORAX: Unremarkable. LIVER: Unremarkable. No gross lesion or ductal dilatation. GALLBLADDER AND BILE DUCTS: Cholelithiasis. PANCREAS: Unremarkable. No gross lesion or ductal dilatation. SPLEEN: Unremarkable. ADRENALS: Unremarkable. No mass. KIDNEYS AND URETERS: Left hydroureteronephrosis secondary to a 4 millimeter calculus within the proximal left ureter with new left perinephric periureteric all inflammatory stranding. VASCULATURE: Unremarkable. No aortic aneurysm. BOWEL: Unremarkable. No obstruction. No gross mural thickening. APPENDIX: Unremarkable. Normal appendix. PERITONEUM: Unremarkable. No free fluid. No free air. LYMPH NODES: Unremarkable. No enlarged lymph nodes. BLADDER: Stable tiny bladder calculi. REPRODUCTIVE: Unremarkable. BONES: No acute fracture. OTHER FINDINGS: None. IMPRESSION: Left hydroureteronephrosis secondary to a 4 millimeter calculus within the proximal left ureter with new left perinephric periureteric all inflammatory stranding.
[2018-01-28] MEDS ORDERED: cefTRIAXone (Rocephin) 1 gm Inj ONE (16:04)
[2018-01-28] MEDS ORDERED: Iohexol 240 (50 ml) ONE (16:04)
--- NOTE | 2018-01-29 09:45 | RAD ---
Date of service: 01/28/2018 HISTORY: urolithiasis//please compare with flouroscopy 01/23 COMPARISON: 10/06/2015 FINDINGS: BOWEL: Normal. No obstruction. No free air. BONES: Normal. OTHER FINDINGS: There is an 11 mm stone in the left kidney that appears to be fragmented compared to the previous study where it measured 8 mm. There are no fluoroscopic studies available on the PAC system for comparison IMPRESSION: As above
[2018-01-29] MEDS ORDERED: cefTRIAXone (Rocephin) 1 gm Inj ONE (14:11)
[2018-01-29] MEDS ORDERED: Iohexol 240 (50 ml) ONE (14:11)
[2018-01-29] MEDS ORDERED: Midazolam 2 MG/2 ML VIAL ONE (14:45)
[2018-01-29] MEDS ORDERED: Propofol 10 mg/ml Inj (20 ML) ONE (14:45)
[2018-01-29] MEDS ORDERED: HYDROmorphone 0.5 mg/0.5 ml ISec IVP PRN (14:48)
[2018-01-29] MEDS ORDERED: Lactated Ringer's 1,000 ML IV SCH (15:00)
[2018-01-29] MEDS ORDERED: Iohexol 240 (50 ml) UR ONE (16:30)
[2018-01-29] MEDS ORDERED: Magnesium Citrate Oral SOL (300 ml) PO ONE (17:06)
[2018-01-29] MEDS ORDERED: Gentamicin 160 MG in Sodium Chloride 0.9% 100 ML IVPB SCH (17:15)
[2018-01-29] MEDS ORDERED: HYDROmorphone 0.5 mg/0.5 ml ISec IVP ONE (18:15)
[2018-01-29] MEDS ORDERED: Gentamicin 80 mg/2mL Inj. ONE (18:18)
[2018-01-29] MEDS ORDERED: HYDROmorphone 0.5 mg/0.5 ml ISec ONE (18:29)
[2018-01-29] MEDS ORDERED: Gentamicin IV 80mg/50ml NS(PREMIX) IVPB ONE (18:30)
[2018-01-29 23:20] VITALS: RESP 20
[2018-01-30 07:34] VITALS: BP 149/86; PULSE 67; TEMP 97.8; O2SAT 98
--- NOTE | 2018-01-30 07:49 | RAD ---
Date of service: 01/29/2018 PROCEDURE: Fluoroscopy up to 1 hour HISTORY: RETROGRADE PYELOGRAM/ LASER LITHOTRIPSY / STENT INSERTION (LEFT) COMPARISON: TECHNIQUE: 45.2 seconds of fluoro time. 18.25 mGy cumulative dose. Twenty-four images submitted FINDINGS: The study shows placement of wires and instruments in the left ureter and collecting system with eventual placement of a left ureteral stent IMPRESSION: As above
--- NOTE | 2018-01-30 09:13 | CT ---
Date of service: 01/30/2018 PROCEDURE: CT Abdomen and Pelvis without intravenous contrast HISTORY: compare with previous ct and kub-any stones remain COMPARISON: None. TECHNIQUE: Without contrast. Contrast dose: Radiation dose: Total exam DLP = 922 mGy-cm. This CT exam was performed using one or more of the following dose reduction techniques: Automated exposure control, adjustment of the mA and/or kV according to patient size, and/or use of iterative reconstruction technique. FINDINGS: LOWER THORAX: Unremarkable. LIVER: Unremarkable. No gross lesion or ductal dilatation. GALLBLADDER AND BILE DUCTS: Gallstones. No evidence of cholecystitis PANCREAS: Unremarkable. No gross lesion or ductal dilatation. SPLEEN: Unremarkable. ADRENALS: Unremarkable. No mass. KIDNEYS AND URETERS: There is a left ureteral stent. There are no stones seen along the ureteral stent. There is a small 2 mm stone in the bladder that was seen previously. There is also a nonobstructing stone or stone fragments in the periphery of the left kidney also unchanged VASCULATURE: Unremarkable. No aortic aneurysm. BOWEL: Unremarkable. No obstruction. No gross mural thickening. APPENDIX: Unremarkable. Normal appendix. PERITONEUM: Unremarkable. No free fluid. No free air. LYMPH NODES: Unremarkable. No enlarged lymph nodes. BLADDER: Unremarkable. REPRODUCTIVE: Unremarkable. BONES: No acute fracture. OTHER FINDINGS: None. IMPRESSION: There is a left ureteral stent. There are no stones seen along the ureteral stent. There is a small 2 mm stone in the bladder that was seen previously. There is also a nonobstructing stone or stone fragments in the periphery of the left kidney also unchanged
--- NOTE | 2018-02-05 15:34 | PN ---
Copied To: Cheng Harkins MD Attending MD: Cheng Harkins MD IMMEDIATE POSTOPERATIVE NOTE DATE: 01/29/2018 SUBJECTIVE: See the operative note, see the history and physical, see the progress note from yesterday. The patient presents with severe pain and colic. We after discussing options postop period, we did a and a stent. cysto and ureteroscopy, laser lithotripsy, stenting. There were no complications. See the operative note. The patient's vital signs remained stable in the recovery room. We selected with no dangles in an effort to let the body heal. Cheng Harkins MD
--- NOTE | 2018-02-06 06:24 | DS ---
Copied To: Chneg Harkins MD Attending MD: Cheng Harkins MD UROLOGY DISCHARGE SUMMARY Date of admission is 01/28/2018 and date of discharge is 01/30/2018. In between, see the history and physical and daily progress notes and the operative note. But in summary, the patient is now discharged home in stable condition with minimal colic. He has a double-J stent in with no dangles. He should be stone free. In fact, seeing the CT scan, we ordered a new CT scan, just to confirm that there are no stones along the ureteral stent. There are some little stones up in the kidney. I will discuss this with the patient about whether or not we should repeat shockwave lithotripsy versus just removing it. He has been through three procedures with anesthesia, and therefore I am hesitant. But I will advise him that there is still some little stones and tiny stone fragments up in the kidney. I also have advised the patient that I am concerned with the fact that may be there is something in the ureter, while the stones keep accumulating in the upper ureter. At the time of discharge, he is stable. He notes he understands he is going to have it removed. Otherwise unremarkable. The past medical, surgical is otherwise unchanged. FINAL DIAGNOSES: Urolithiasis, hematuria, severe renal colic. Cheng Harkins MD
--- NOTE | 2018-02-06 07:40 | OP ---
Copied To: Cheng Harkins MD Attending MD: Cheng Harkins MD PROCEDURE DATE: 01/29/2018 PREOPERATIVE DIAGNOSES: Severe renal colic, persisting urolithiasis, fragmented stone, hematuria, hydronephrosis. POSTOPERATIVE DIAGNOSES: Severe renal colic, persisting urolithiasis, fragmented stone, hematuria, hydronephrosis, and confirmed conglomeration of broken stones. PROCEDURES: Cystoscopy, ureteroscopy, laser lithotripsy, insertion of a double J-stent with no dangles. COMPLICATIONS: There were no complications. BLOOD LOSS: Less than 50 mL. FINDINGS: 1. Normal anterior urethra. No strictures. 2. Verumontanum is visually occlusive by 2 to 3 cm. 3. There are basically several stones windup . In the upper ureter where the original stone was. But the original stone is definitely fragmented and broken as well as many others. At the termination of today's procedure, the finding below that there is no stone what I mentioned now, that perhaps there is some ureteral abnormality why the stones were getting stuck there because they were all relatively small and there is no specific abnormality, edema, etc. INDICATIONS: See the history and physical for further details . We brought the patient back in, see the original note, he has been in many institution. He has been admitted at [facility] I do not know if he was seen by me. At that point, I have definitely seen him and treated him at [facility] and saw we could not stent it initially, very difficult, very obstructed stone, we did a shock wave lithotripsy. We brought him back to [facility] and we did a ureteroscopy and laser and did get rid of all the remaining stones. We fragmented the stones very nicely. But last time, we treated him on 01/23 and then at that time, we placed a stent with dangles and we removed it last week. We left him with stent with dangles. We then brought him on 01/27 to our office. I removed this in the office and then 01/28, he presented back in the [place] and the report of stone is that it is a 1.1 cm stone, where as the original is 0.8, but further evaluation, looking at the CAT scan with the radiologist and reviewing it myself stone fragments. He is here for the above listed procedure. Our operative findings confirmed now of a bunch of stone together. Cystoscope introduced via the urethra. no strictures. The verumontanum is visually occlusive, about 3 cm or less. Normal for age, but fairly occlusive. We identified the ureteral orifice and we got the wire up to the kidney under fluoroscopic imaging. At this point, we now introduced a safety wire and we introduced a videoureteroscope. stone, see the fluoroscopic imaging and also the pictures that were taken. We identified the stone material. We just break the stone, then break the stone, then break the stone. Shattering it even smaller pieces . All these pieces are not more than 2 to 3 mm size, not even probably. Procedure continued, we break off the stones, we now put a double J-stent in, but I want the patient to heal. with no dangles with the plan for heal and encourage fluid hydration, etc. There is no evidence of complications separate progress note and the immediate postoperative note, but what I am going to recommend the patient is to drink 3 to 4 liters a day within the next week or two and then afterwards, we will remove the stent. I am a little concerned that some abnormality why the stone keeps forming and accumulating in the rest of the ureter, it is just around the region of the UPJ, we may need to define that anatomy perhaps the UPJ obstruction and this is the concerning factor if there is any stone fragments. We will discuss this further with the patient . Cheng Harkins MD
--- NOTE | 2018-02-06 07:42 | HP ---
Copied To: Cheng Harkins MD Attending MD: Cheng Harkins MD Emergency admission for severe renal colic. HISTORY OF PRESENT ILLNESS: See many previously dictated notes for this patient. He is a very pleasant, extremely pleasant gentleman, who unfortunately is now being admitted with severe renal colic again. See previous notes. Initially, he presented with obstructing stone on the left. We did a cysto with stent. He has a tremendous stone burden. We then brought him, after the cysto with stent, which was done with cystoscope from the obstructing stone and we were able to get a stent in. We then brought him for an ESWL. We broke up stones. But he is presently not passing them well. This is his third or fourth institution. I think he has been at [facility], treated stent and I also did a ureteroscopy. See all previous notes dictated. outside the body. Last night, I removed the stent in the office. It was very tangled. We removed the stent without difficulty and now he is presenting with severe renal colic and now has only residual stone fragments that are there. It is listed as bigger than previously noted stone, but in fact looking more closely they are fragmented stones that have conglomerated together to be one stone. So he has previously been treated. We have broken the stone. We removed the stent, but now at this point, he is having a conglomeration of stone, so it has gone from 0.8 mm to a 1 cm conglomeration, but it is broken up stones. Now, we are admitting him for severe renal colic. We will get a couple of films and discussing the imaging and the reporting, but actually looking at the films with the radiologist and then we are deciding what to do. PAST MEDICAL AND SURGICAL HISTORY: As listed on the chart. REVIEW OF SYSTEMS: As listed above. PHYSICAL EXAMINATION: GENERAL: He is currently resting comfortably on the bed, but he attributes this secondary to the pain medicines. See the plans listed below. VITAL SIGNS: Within normal limits. LUNGS: Clear. ABDOMEN: Overall, soft and nontender. GENITOURINARY: Normal phallus without discharge. No testicular masses. RECTAL: A 3 g to 4 g prostate, soft and smooth. LABORATORY DATA: See chart. CT scan, see chart. I had a chance of looking it directly. DIAGNOSIS: Severe renal colic, persistent on the left side. ASSESSMENT: A very pleasant gentleman, extremely pleasant. He has presented to me with severe renal colic. He started with a 3 mm stone initially with an 8 mm stone in the upper ureter, but in addition, the patient had several stones in his kidney. We have tried treating them and we have broken them as we look at the x-ray and the CAT scan, etc., but now what is being reported is that there is a 1.1 cm stone at the UVJ. It is actually really a conglomeration of all the stones. The plan for now is as follows, 1. We are going to do a plain KUB. 2. We are going to monitor the patient. We are going to try Flomax, IV fluid, analgesics, perhaps, once the stone will come out. So the plan is as follows, 1. KUB. 2. IV fluid. 3. Antibiotics. 4. Hydration. 5. Analgesics. 6. Flomax, and then the plan will be that we will discuss the options. We will consider a possibility of repeat ESWL with ureteroscopy, cystoscopy, laser lithotripsy, all these options will be entertained. Now, the patient is admitted to my service. We will follow closely and then make further recommendations and plan. Cheng Harkins MD
== END 2018-01-30 14:26 | disposition home or self-care (01) ==
LOC: ED 00:05 → ERH 03:48 → 5RSO 04:48
PROVIDERS: ADMIT Urology; ATTEND Urology
DX: N13.2 Hydronephrosis with renal and ureteral calculous obstruction (principal); I12.9 Hypertensive chronic kidney disease with stage 1 through stage 4 chronic kidney disease, or unspecified chronic kidney disease; N18.9 Chronic kidney disease, unspecified; E78.00 Pure hypercholesterolemia, unspecified
CPT/HCPCS: 52356; 74022; 74176; 80053; 81001; 85027; 87086; 96361; 96365; 96375; 99284; C1758; C1769; C2617; G0378; J0696; J1170; J1580; J2001; J2250; J2270; J2405; J2704; J3010; J7030; Q9966

== ENCOUNTER 2018-07-28 22:25 | Emergency (ER) | payer MEDICAID ==
[2018-07-28 22:25] VITALS: BMI 31.1
--- NOTE | 2018-07-28 23:53 | ED PDOC ---
Arrival/HPI <Manny Macias - Last Filed: 07/29/18 00:10> - General Historian: Patient - History of Present Illness Narrative History of Present Illness (Text): 07/28/18 23:50 58yo male with pmhx of hypertension who present with complaint of nonproductive cough, generalized bodyache ad subjective fever since this morning. States his daughter had similar symptoms. Reports taking Nyquil tonight. Denies chest pain, SOB, nausea, abdominal pain, sore throat, any other complaint. <Marlon Barth A - Last Filed: 07/29/18 01:21> - General Chief Complaint: Flu-like Symptoms Time Seen by Provider: 07/28/18 23:31 Past Medical History - Provider Review Nursing Documentation Reviewed: Yes - Infectious Disease Hx of Infectious Diseases: None - Tetanus Immunization Tetanus Immunization: Unknown - Cardiac Hx Hypertension: Yes - Pulmonary Hx Asthma: No Hx Bronchitis: No Hx Chronic Obstructive Pulmonary Disease (COPD): No Hx Emphysema: No Hx Pneumonia: No Hx Sleep Apnea: No - Neurological Hx Neurological Disorder: No - HEENT Hx HEENT Disorder: No - Renal Hx Renal Disorder: Yes Hx Kidney Stones: Yes - Endocrine/Metabolic Hx Endocrine Disorders: No - Hematological/Oncological Hx Blood Transfusions: No Hx Blood Transfusion Reaction: No - Integumentary Hx Dermatological Disorder: No - Musculoskeletal/Rheumatological Hx Musculoskeletal Disorders: No - Gastrointestinal Hx Gall Bladder Disease: Yes (cholelithiasis) - Genitourinary/Gynecological Hx Genitourinary Disorders: No Other/Comment: KIDNEY STONE - Psychiatric Hx Psychophysiologic Disorder: No Hx Substance Use: No - Surgical History Hx Appendectomy: Yes ([facility] 05/31/16) - Anesthesia Hx Anesthesia: Yes Hx Anesthesia Reactions: No Hx Malignant Hyperthermia: No <Marlon Barth A - Last Filed: 07/29/18 01:21> Family/Social History - Physician Review Nursing Documentation Reviewed: Yes Family/Social History: Unknown Family HX Smoking Status: Light Smoker < 10 Cigarettes Daily Hx Alcohol Use: No Hx Substance Use: No <Marlon Barth A - Last Filed: 07/29/18 01:21> Allergies/Home Meds <Manny Macias - Last Filed: 07/29/18 00:10> <Marlon aBrth A - Last Filed: 07/29/18 01:21> Allergies/Adverse Reactions: Allergies No Known Allergies Allergy (Verified 07/28/18 23:27) Home Medications: Home Meds Medication Instructions Recorded Confirmed RX: Metoprolol Succinate 25 mg PO DAILY 01/14/18 02/11/18 Review of Systems - Physician Review All systems were reviewed & negative as marked: Yes - Review of Systems Constitutional: Fatigue Eyes: Normal ENT: Normal Respiratory: Cough Cardiovascular: Normal Gastrointestinal: Normal Genitourinary Male: Normal Musculoskeletal: Normal Skin: Normal Neurological: Normal Endocrine: Normal Hemo/Lymphatic: Normal Psychiatric: Normal <DiruMarlon A - Last Filed: 07/29/18 01:21> Physical Exam Vital Signs Temp Pulse Resp BP Pulse Ox 07/28/18 23:28 99.6 F 111 H 20 111/83 98 <Manny Macias - Last Filed: 07/29/18 00:10> Vital Signs Reviewed: Yes Vital Signs Temp Pulse Resp BP Pulse Ox 07/28/18 23:28 99.6 F 111 H 20 111/83 98 Temperature: Afebrile Blood Pressure: Normal Pulse: Tachycardic Respiratory Rate: Normal Appearance: Positive for: Well-Appearing, Non-Toxic, Comfortable Pain Distress: None Mental Status: Positive for: Alert and Oriented X 3 - Systems Exam Head: Present: Atraumatic, Normocephalic Pupils: Present: PERRL Extroacular Muscles: Present: EOMI Conjunctiva: Present: Normal Mouth: Present: Moist Mucous Membranes Neck: Present: Normal Range of Motion Respiratory/Chest: Present: Clear to Auscultation, Good Air Exchange. No: Respiratory Distress, Accessory Muscle Use, Wheezes, Decreased Breath Sounds, Rales, Retracting, Rhonchi, Tachypneic Cardiovascular: Present: Regular Rate and Rhythm, Normal S1, S2. No: Murmurs Abdomen: No: Tenderness, Distention, Peritoneal Signs Back: Present: Normal Inspection Upper Extremity: Present: Normal Inspection. No: Cyanosis, Edema Lower Extremity: Present: Normal Inspection. No: Edema Neurological: Present: GCS=15, CN II-XII Intact, Speech Normal Skin: Present: Warm, Dry, Normal Color. No: Rashes Psychiatric: Present: Alert, Oriented x 3, Normal Insight, Normal Concentration <DirMarlon baker A - Last Filed: 07/29/18 01:21> Medical Decision Making - RAD Interpretation Radiology Orders: 07/28/18 23:49 CHEST TWO VIEWS (PA/LAT) [RAD] Stat - Medication Orders Current Medication Orders: Discontinued Medications Ibuprofen (Motrin Tab) 600 mg PO STAT STA Stop: 07/28/18 23:50 Last Admin: 07/28/18 23:58 Dose: 600 mg MAR Pain/Vitals Document 07/28/18 23:58 JRA (Rec: 07/28/18 23:58 JRA [id number]) Pain Reassessment Is This A Pain ReAssessment? No Sleep Is patient sleeping during reassessment? No Presence of Pain Presence of Pain No <Manny Macias - Last Filed: 07/29/18 00:10> ED Course and Treatment: 07/29/18 00:56 Pt present to ED for stated history. He was hemodynamically stable. chest xray NAD Repaid flu Negative Pt was treated with NSAID and antitussive Result was DW the pt. He was treated symptomatically for viral URI. Referred to his PMD. TRT ED for any new or worsening symptoms. - RAD Interpretation Radiology Orders: 07/28/18 23:49 CHEST TWO VIEWS (PA/LAT) [RAD] Stat <Marlon Barth A - Last Filed: 07/29/18 01:21> - PA / DATA CAPTURE CLERK / Resident Statement / has reviewed & agrees with the documentation as recorded. <Manny Macias - Last Filed: 07/29/18 00:10> Disposition/Present on Arrival <Manny Macias - Last Filed: 07/29/18 00:10> - Present on Arrival Any Indicators Present on Arrival: No History of DVT/PE: No History of Uncontrolled Diabetes: No Urinary Catheter: No History of Decub. Ulcer: No History Surgical Site Infection Following: None - Disposition Have Diagnosis and Disposition been Completed?: Yes Disposition Time: 00:55 Patient Plan: Discharge <Marlon Barth - Last Filed: 07/29/18 01:21> - Disposition Diagnosis: Cough, Malaise Disposition: HOME/ ROUTINE Patient Problems: Current Active Problems Problem Status Onset Cough Acute Malaise Acute Condition: STABLE Discharge Instructions (ExitCare): Cough in Adults Additional Instructions: Follow up with your doctor Drink plenty of fluid and rest Return to ED for any new symptoms Prescriptions: RX: Ibuprofen [Motrin Tab] 600 mg PO Q6 #15 tab RX: Promethazine [Phenergan Syrup] 6.25 mg PO Q6 #100 cup Referrals: Carlota Neff [Primary Care Provider] - Follow up with primary Forms: [employer] (Serbian)
[2018-07-29] MEDS ORDERED: guaiFENesin DM 200 mg-20 mg/10 ml UD PO STA (00:51)
[2018-07-29 04:45] VITALS: BP 121/71; PULSE 70; RESP 18; TEMP 98.1; O2SAT 99
--- NOTE | 2018-07-29 14:35 | RAD ---
Date of service: 07/29/2018 HISTORY: Cough COMPARISON: No prior. TECHNIQUE: Chest PA and lateral FINDINGS: LUNGS: No active pulmonary disease. PLEURA: No significant pleural effusion identified. No pneumothorax apparent. CARDIOVASCULAR: No aortic atherosclerotic calcification present. Normal cardiac size. No pulmonary vascular congestion. OSSEOUS STRUCTURES: No significant abnormalities. VISUALIZED UPPER ABDOMEN: Normal. OTHER FINDINGS: None. IMPRESSION: No active disease.
== END 2018-07-29 01:30 | disposition home or self-care (01) ==
LOC: ED 22:25
DX: R05 Cough (principal); R53.81 Other malaise; F17.210 Nicotine dependence, cigarettes, uncomplicated; I10 Essential (primary) hypertension